=== PATIENT | female | born 1935 | race Caucasian/White ===

== ENCOUNTER → 2023-12-22 11:10 | Outpatient (REF) | payer OTHER, SELFPAY | LOC: HWRCS 11:10 | PROVIDERS: ATTENDING PHYSICIAN Internal Medicine Interventional Cardiology; FAMILY PHYSICIAN Physician Assistant Medical | DX: I27.20 Pulmonary hypertension, unspecified (principal) | CPT/HCPCS: 93306 ==

== ENCOUNTER 2024-01-02 21:45 | Emergency (ER) | payer OTHER, SELFPAY ==
[2024-01-02 21:50] VITALS: BP 209/91
[2024-01-02 21:53] VITALS: BP 197/93
[2024-01-02 22:08] LABS: % Basophils 0.4 % (0-2); % Eosinophils 2.9 % (0-6); % Immature Granulocytes 0.2 % (0-0.5); % Lymphocytes 27.8 % (20.5-51.1); % Monocytes 10.1 % (1.7-9.3); % Neutrophils 58.6 % (42.2-75.2); Absolute Eosinophils 0.2 10^3/uL (0-0.7); Absolute Lymphocytes 1.4 10^3/uL (1.2-3.4); Absolute Monocytes 0.5 10^3/uL (0.1-0.6); Hematocrit 36.1 % (37.0-47.0); Hemoglobin 11.7 g/dL (12.0-16.0); Mean Corp Hgb Conc. 32.4 g/dL (33.0-37.0); Mean Corpuscular Hgb 29.8 pg (27.0-31.0); Mean Corpuscular Volume 91.9 fL (81.0-99.0); Mean Platelet Volume 10.2 fL (7.4-10.4); Nucleated Red Blood Cells % 0 %; Platelet Count 192 10^3/uL (130-400); Red Blood Cell Count 3.93 10^6/uL (4.20-5.40); Red Cell Dist. Width 14.1 % (11.5-14.5); White Blood Cell Count 5.1 10^3/uL (4.8-10.8)
[2024-01-02 22:31] LABS: Troponin I < 0.012 ng/ml
[2024-01-02 22:34] LABS: ALT (SGPT) 35 U/L (0-35); AST (SGOT) 35 U/L (14-36); Albumin 4.7 g/dl (3.5-5.0); Alkaline Phosphatase 97 U/L (38-126); Blood Urea Nitrogen 35 mg/dl (7-17); Calcium 9.3 mg/dl (8.4-10.2); Carbon Dioxide 27 mmol/L (22-30); Chloride 97 mmol/L (98-107); Glucose 150 mg/dl (70-99); Potassium 4.2 mmol/L (3.5-5.1); Sodium 140 mmol/L (135-145); Total Bilirubin 0.2 mg/dl (0.2-1.3); Total Protein 7.4 g/dl (6.3-8.2); eGFR 25.08
--- NOTE | 2024-01-02 23:47 | ED.GENMED ---
History of Present Illness
General
Chief Complaint: Blood Pressure Problem
Source: patient
Exam Limitations: none
Time Seen by Provider: 01/02/24 23:26
History of Present Illness
History of Present Illness:
This is a 88 year old female that comes in with c/o pain in the middle of her back. States that this started around 8pm and is between her shoulder blades. States that she has never had this before and her BP was 226/100. States that she also felt
like she needed to burp. States that right now it is not as bad as it was before. Patient did not take anything for pain at home. Denies any fever,chills, chest pain, SOB, abd pain, nausea, vomiting, diarrhea, headache, dizziness, urinary burning.
Past History
Past History
ED Past Medical History: Cancer (Skin cancer, melanoma), GERD, HTN, Hypercholesterolemia, NIDDM and Other (Back pain, Swallowing problem); Negative Arrthythmia
ED Past Surgical History: Orthopedic (Right rotator cuff repair. Trigger finger surgery) and Other (Cataracts, )
Social History
Tobacco: Non-smoker
Alcohol: None
Drug: None
Personal: (With daughter)
Living: alone
Employment: Retired
Family History
Family History: Other (Noncontributory)
Review of Systems
Review of Systems
All Other Systems: ROS reviewed and negative except as documented in HPI and ROS
Constitutional: Reports no symptoms; Denies fever or chills
EENT: Reports no symptoms
Respiratory: Reports no symptoms; Denies cough or trouble breathing
Cardiac: Reports no symptoms; Denies chest pain
ABD/GI: Reports no symptoms; Denies abdominal pain, nausea, vomiting or diarrhea
: Reports no symptoms; Denies dysuria, frequency or urgency
Musculoskeletal: Reports back pain (Pain between the shoulder blades)
Skin: Reports no symptoms
Neurological: Reports no symptoms; Denies dizzy or headache
Psychiatric: Reports no symptoms
Phy Exam
General Physical Exam
General Presentation: no apparent distress
General age: appears stated age
General Skin: warm and dry
General Habitus: elderly
General Mental: alert
General Hydration: dry mucous membranes
ENT Exam
ENT Exam: TM's normal, pharynx normal and neck supple
Eye Exam
Eye Exam: EOMI
Cardiovascular Exam
Cardiovascular Exam: regular rate/rhythm, no edema, normal peripheral pulses and other (Murmur)
Pulmonary Exam
Pulmonary Exam: lungs clear, no respiratory distress, no rales, chest non tender, no crackles, no rhonchi, no wheezing and no cough
Gastrointestinal Exam
Gastrointestinal Exam: normal bowel sounds, non tender, soft, no organomegaly, no pulsatile mass and non distended
Musculoskeletal Exam
Musculoskeletal Exam: full ROM and no edema
Skin Exam
Skin Exam: normal color, warm/dry, no rash and no petechia
Psychiatric Exam
Psychiatric Exam: normal mood/affect
Course
Orders/Labs/Results
Orders:
Orders
01/02/24 21:54
Electrocardiogram (*1) Urgent
Reason for Study: Other
Other Reason for Exam: back pain
EKG- Treatment ONCE
01/02/24 22:02
Complete Blood Count/With Diff Urgent
Comprehensive Metabolic Panel Urgent
Troponin I Urgent
01/02/24 23:46
EKG- Treatment ONCE
01/02/24 23:47
Acetaminophen [Tylenol] 1,000 mg PO NOW STA
01/02/24 23:50
Pantoprazole [Protonix IV] 40 mg IV NOW STA
01/03/24 00:01
CR Chest - 2 Views Urgent
Reason For Exam: Upper back pain between shoulder blades
01/03/24 00:48
Troponin I Urgent
01/03/24 01:00
Electrocardiogram (*1) Urgent
Reason for Study: CAD
Other Reason for Exam: Repeat with Troponin
Abnormal Lab Results
01/02/24
22:02
RBC 3.93 L 10^6/uL
(4.20-5.40)
Hgb 11.7 L g/dL
(12.0-16.0)
Hct 36.1 L %
(37.0-47.0)
MCHC 32.4 L g/dL
(33.0-37.0)
Monocytes % 10.1 H %
(1.7-9.3)
Chloride 97 L mmol/L
(98-107)
BUN 35 H mg/dl
(7-17)
Creatinine 1.9 H mg/dL
(0.6-1.0)
Glucose 150 H mg/dl
(70-99)
01/02/24 22:02
01/02/24 22:02
H/H slightly low, Chloride slightly low. Dehydration. Chronic renal insufficiency, Hyperglycemia. Troponin <0.012
Second Troponin <0.012
Vital Signs
Initial and Last Documented VS:
Initial Vital Signs
Temp Pulse Resp BP Pulse Ox
98.3 F 76 18 209/91 95
01/02/24 21:50 01/02/24 21:50 01/02/24 21:50 01/02/24 21:50 01/02/24 21:50
Last Documented Vital Signs
Temp Pulse Resp BP Pulse Ox
98.3 F 73 14 162/67 94
01/02/24 21:50 01/03/24 00:00 01/03/24 00:00 01/03/24 00:01 01/03/24 00:00
MDM/Problems Addressed
Differential Diagnosis Includes:
Back pain, Coronary syndrome. Aortic dissection. GERD
MDM/Problems Addressed:
This is a 88 year old female that comes in with c/o upper middle back pain. States that this started about 8pm and has been constant. States that she feels like she needs to burp.
Will check labs, Chest x-ray.
Back into see patient. Explained that both Troponin are normal along with her chest x-ray. Patient states that her pain is gone and is feeling much better. states that she feels it was form her swallowing issues. Will have patient follow up with the
family doctor. Patient to return with any concerns.
Chronic conditions affecting care:
Back pain
Acute Exacerbation and/or Progression of Chronic Illness:
Back pain
*Radiology
Radiology exam reviewed: preliminary read by ED provider (Chest- Negative for acute cardiopulmonary disease. BS)
*EKG
Interpreted by ED Provider?: Yes
Heart Rate: 76
Rate: normal
Rhythm: sinus
Hamilton: normal axis
Interval: normal interval
QRS Pattern: right bundle branch block
Ischemia: T-wave inversion (aVR, V1, V2, )
*[employer] Interpretation
Rate: normal
Heart Rate: 72
Rhythm: sinus
*Critical Care Note
Total Time (30-74mins, 75-104mins- exclusive of procedures): Not Applicable
ED Attending Note
-
Portions of this chart may have been created with voice recognition software.� Occasional wrong word or��sound alike� substitutions may have occurred due to the inherent limitations of voice recognition software.
Discharge Plan
Departure
Patient Disposition: Home (Routine Discharge)
Date of Disposition: 01/03/24
Time of Disposition: 01:36
Patient with high blood pressure during this ER visit?: Yes
Condition: Good
Covid-19: Not Applicable
Discharge Problem:
Acute upper back pain
Instructions: Upper Back Pain (DC), BLOOD PRESSURE
Prescriptions:
New
pantoprazole [Protonix] 40 mg tablet,delayed release (DR/EC)
40 mg PO DAILY Qty: 30 0RF
No Action
omeprazole 20 MG capsule,delayed release(DR/EC)
20 mg PO DAILY@1200
atorvastatin 20 MG tablet
20 mg PO DAILY@1800
amlodipine 5 MG tablet
5 mg PO DAILY
tramadol 50 MG tablet
100 mg PO .DAILY@0900
Patient Comments:
02/02/2021: last filled 01/27/21, 90 tabs for 30 days from [facility]
atenolol 25 MG tablet
25 mg PO DAILY
Januvia 50 MG tablet
25 mg PO DAILY
tramadol 50 MG tablet
50 mg PO DAILY@1800
Patient Comments:
02/02/2021: last filled 01/27/21, 90 tabs for 30 days from [facility]
ferrous sulfate [FeroSul] 325 MG tablet
325 mg PO DAILY@0900
oxybutynin chloride 5 MG tablet
5 mg PO DAILY@2300
PreserVision AREDS 1 CAP capsule
1 cap PO DAILY@1300
glimepiride 2 MG tablet
2 mg PO BID@0900,1800
furosemide 40 mg Tablet
40 mg PO .1800
hydralazine 25 mg Tablet
25 mg PO BID
baclofen 10 mg Tablet
10 mg PO DAILY@0900
potassium
DAILY
Rx Instructions:
unknown dosage
furosemide 20 MG tablet
80 mg PO DAILY
Referrals:
Sharmaine Franco PA-C [Family Provider] - Call in 1-3 days for appt
Activity Restrictions/Additional Instructions:
As discussed, your blood work shows you are dehydration. Please increase your water intake to 8-8oz glasses daily. Your Both Troponin are normal along with your chest x-ray. This may all be related to your Hiatal hernia and swallowing difficulty.
You have had a prescription for Protonix sent to your Pharmacy. Please take this daily. Follow up with the family doctor for recheck. IF YOU HAVE INCREASED OR CHANGING PAIN, OR YOU HAVE ANY OTHER CONCERNS PLEASE RETURN TO THE EMERGENCY ROOM .
Interventions
Interventions:
*Risk Screen - Suicide Last Done: 01/02/24 21:52
*General Assessment Last Done: 01/02/24 21:53
*Neglect/Abuse Screening Last Done: 01/02/24 21:52
ED- Fall Risk Assessment Last Done: 01/03/24 00:13
*ED COVID-19 Vaccine History Last Done: 01/02/24 21:53
ED- Cardiac Assessment Last Done: 01/03/24 00:13
ED- Neurological Assessment Last Done: 01/03/24 00:13
ED- Pulmonary Assessment Last Done: 01/03/24 00:13
Discharge Date and Time
Print Language: ANGOLAN
[2024-01-03] VITALS: BP 162/67
[2024-01-03 00:01] VITALS: BP 162/67
[2024-01-03] MEDS: TYLENOL 1000 MG PO (00:03)
[2024-01-03] MEDS: PROTONIX IV 40 MG IV (00:03)
[2024-01-03 00:09] VITALS: BMI 32.3
[2024-01-03 01:00] VITALS: BP 170/65
[2024-01-03 01:22] LABS: Troponin I < 0.012 ng/ml
== END 2024-01-03 02:16 | disposition home or self-care (01) ==
LOC: EMR 21:45
PROVIDERS: Clinical Nurse Specialist Family Health; Emergency Medicine; EMERGENCY PHYSICIAN Emergency Medicine; FAMILY PHYSICIAN Physician Assistant Medical
DX: M54.9 Dorsalgia, unspecified (principal); K21.9 Gastro-esophageal reflux disease without esophagitis; I12.9 Hypertensive chronic kidney disease with stage 1 through stage 4 chronic kidney disease, or unspecified chronic kidney disease; E11.22 Type 2 diabetes mellitus with diabetic chronic kidney disease; N18.9 Chronic kidney disease, unspecified; E11.36 Type 2 diabetes mellitus with diabetic cataract; E11.65 Type 2 diabetes mellitus with hyperglycemia; E78.00 Pure hypercholesterolemia, unspecified; E86.0 Dehydration; I25.10 Atherosclerotic heart disease of native coronary artery without angina pectoris; Z85.820 Personal history of malignant melanoma of skin; Z85.828 Personal history of other malignant neoplasm of skin
CPT/HCPCS: 99283; 96374; 71046; 80053; 84484; 85025; 93005

== ENCOUNTER → 2024-04-09 10:39 | Outpatient (REF) | payer OTHER, SELFPAY | LOC: RAD 10:39 | PROVIDERS: ATTENDING PHYSICIAN Internal Medicine Gastroenterology; FAMILY PHYSICIAN Physician Assistant Medical | DX: R13.10 Dysphagia, unspecified (principal) | CPT/HCPCS: 74221 ==

== ENCOUNTER → 2024-04-11 09:27 | Outpatient (REF) | payer OTHER, SELFPAY | LOC: RST 09:27 | PROVIDERS: ATTENDING PHYSICIAN Internal Medicine Gastroenterology; FAMILY PHYSICIAN Physician Assistant Medical | DX: R13.10 Dysphagia, unspecified (principal) | CPT/HCPCS: 74230; 92611 ==